=== PATIENT | male | born 1955 | race Caucasian/White ===

== ENCOUNTER 2025-06-06 21:14 | Emergency (ER) | payer MEDICARE, SELFPAY ==
--- OUTSIDE RECORDS SUMMARY | 2024-07-17 11:01 | XMS_ITS | Continuity of Care Document ---
Author Organization [facility] ([facility]) Care Team Providers Care Insurance Underwriter Sales Name Role Phone JUVENAL Primary Care Physician [phone] Encounters Encounter Type Service Location Arrival/Admit Date Discharge/Depart Date Discharge Disposition Informant Office or other outpatient consultation for a new or established patient, 20 mins or more, which requires a medically appropriate history and/or examination and straightforward medical decision making. [facility] 07/17/2024 16:01:34 PDT - - [facility] Problem List Start Date End Date Condition Code Condition Name Condition Text Problem Category Problem Text Status Informant - - K57.92 Diverticulitis of intestine, part unspecified, without perforation or abscess without bleeding Diverticulitis of intestine, part unspecified, without perforation or abscess without bleeding - encounte r-diagno [facility] - - R15.0 Incomplete defecation Incomplete defecation - encounte r-diagno [facility] Allergies, adverse reactions, alerts Code Description Status Start Date Substance Reaction Severity Criticality Informant - SULFA ANTIBIOTICS Active (qualifi er value) 014 08:00:0 0 PDT - - - - [facility] - POLLEN EXTRACT Active (qualifi er value) 019 07:00:0 0 PDT - - - - [facility] - AZELASTINE Active (qualifi er value) 014 08:00:0 0 PDT AZELASTINE Other - - [facility]
--- OUTSIDE RECORDS SUMMARY | 2024-07-17 11:01 | XMS_ITS | Continuity of Care Document ---
Author Organization [facility] ([facility]) Care Team Providers Care Test Rack Operator Name Role Phone JUVENAL Primary Care Physician [phone] Encounters Encounter Type Service Location Arrival/Admit Date Discharge/Depart Date Discharge Disposition Informant Office or other outpatient consultation for a new or established patient, 20 mins or more, which requires a medically appropriate history and/or examination and straightforward medical decision making. [facility] 07/17/2024 16:01:34 PDT - - [facility] Problem List Start Date End Date Condition Code Condition Name Condition Text Problem Category Problem Text Status Informant - - K57.92 Diverticulitis of intestine, part unspecified, without perforation or abscess without bleeding Diverticulitis of intestine, part unspecified, without perforation or abscess without bleeding - encounte r-diagno [facility] - - R15.0 Incomplete defecation Incomplete defecation - encounte r-diagno [facility] Allergies, adverse reactions, alerts Code Description Status Start Date Substance Reaction Severity Criticality Informant - SULFA ANTIBIOTICS Active (qualifi er value) 014 08:00:0 0 PDT - - - - [facility] - POLLEN EXTRACT Active (qualifi er value) 019 07:00:0 0 PDT - - - - [facility] - AZELASTINE Active (qualifi er value) 014 08:00:0 0 PDT AZELASTINE Other - - [facility]
--- OUTSIDE RECORDS SUMMARY | 2025-06-06 21:16 | XMS_ITS | Clinical Summary ---
Author Organization [facility] ([place] [facility] [place] / [place]) and Affiliates Address [address] [place] [address] Care Team Providers Care Zipper Setter Name Role Phone Unavailable Primary Care Provider Unavailabl e Social History Tobacco Use Types Packs/Day Years Used Date Smoking Tobacco: Never Assessed Sex and Gender Information Value Date Recorded Sex Assigned at Not on file Legal Sex Male 1:10 AM PDT Gender Identity Not on file Sexual Orientation Not on file Plan of Treatment Health Maintenance Due Date Last Done Comments Colonoscopy 1954 Colorectal Cancer Screening 1954 Tetanus (1 - Tdap) 1973 CT Colonography 1999 Cologuard (FIT-DNA) 1999 FIT/FOBT 1999 Sigmoidoscopy 1999 Pneumococcal Vaccine (1 of 1 - PCV) 02/26/2004 Shingles Vaccine (1 of 2) 02/26/2004 COVID-19 Vaccine (2023-2 5 season) 2024 Influenza (#1) 2025 HPV Vaccine <= 26 Yrs Aged Out No harish flory eligible based on patient's age to complete this topic Hep A Vaccine Series Aged Out No long er eligible based on patient's age to complete this topic Meningococcal MCV4 Vaccine Aged Out N o longer eligible based on patient's age to complete this topic
--- OUTSIDE RECORDS SUMMARY | 2025-06-06 21:16 | XMS_ITS | Clinical Summary ---
Author Organization [facility] Address [address], [address] Care Team Providers Care Central Processing Tech Name Role Phone Unavailable Primary Care Provider Unavailabl e Social History Tobacco Use Types Packs/Day Years Used Date Smoking Tobacco: Never Assessed Sex and Gender Information Value Date Recorded Sex Assigned at Not on file Gender Identity Not on file Sexual Orientation Not on file Plan of Treatment Not on file
--- OUTSIDE RECORDS SUMMARY | 2025-06-06 21:16 | XMS_ITS | Clinical Summary ---
Author Organization [facility] Address [id number] [place] [address] Care Team Providers Care Yard Brakeman Name Role Phone NonstaffDoni MD Primary Care Provider Unav ailable Allergies Active Allergy Reactions Criticality Noted Date Comments Azelastine Other 03/05/2015 Bloody nose Sulfa (Sulfonamide Antibiotics) Hives 12/2014 Medications hydroCORTisone (ANUCORT HC, ANUSOL HC) 25 mg Rectal SuppositoryInd ications:Throm bosed external hemorrhoid Unwrap and insert 1 Suppository rectally 2 times a day. 30 Suppository 1 5 Active Social History Tobacco Use Types Packs/Day Years Used Date Smoking Tobacco: Never Alcohol Use Standard Drinks/Week Comments Not Asked 0 (1 standard drink = 0.6 oz pur e alcohol) Sex and Gender Information Value Date Recorded Sex Assigned at Not on file Legal Sex Male 8:57 AM PDT Gender Identity Not on file Sexual Orientation Not on file Last Filed Vital Signs Vital Sign Reading Time Taken Comments Blood Pressure 124/87 03/05/2015 8:48 AM PDT Pulse 64 03/05/2015 8:48 AM PDT Temperature 36.6 C (97.9 F) 03/05/2015 8:48 AM PDT Respiratory Rate 18 03/05/2015 8:48 AM PDT Oxygen Saturation - - Inhaled Oxygen Concentration - - Weight 97.1 kg (214 lb) 03/05/2015 8:48 AM PDT Height 180.3 cm (5' 11) 03/05/2015 8:48 AM PDT Body Mass Index 29.85 03/05/2015 8:48 AM PDT Plan of Treatment Health Maintenance Due Date Last Done Comments Colonoscopy 1954 Colorectal Cancer Screening 1954 FIT 1954 Fecal Mt-sDNA/Cologuard 1954 Hepatitis C Screening 02/26/1972 DTaP, Tdap, and Td Vaccines (1 - Tdap) 1973 Pneumococcal Vaccines (50+ years) (1 of 1 - PCV) 02/25 Zoster Vaccines (1 of 2) 02/26/2004 COVID-19 Vaccine (1 - season) 2024 Depression Screening (Billing for this is optional) Social Drivers of Health (SDoH) 10/03/2024 Influenza Vaccine (#1) 2025 RSV Vaccines (1 - 1-dose 75+ series) 2029 Insurance [employer] Care Teams Yard Brakeman Relationship Specialty Start Date End Date Doni Bullock MD PCP - General Internal Medicine 03/05/15
[2025-06-06 21:20] VITALS: BP 175/79; PULSE 85; RESP 18; TEMP 36.8; O2SAT 98; BMI 31.4
--- NOTE | 2025-06-06 22:24 | ED.GENADULT ---
HPI - General Adult General Date Seen: 06/06/25 Chief complaint: Eye Problems Stated complaint: left eye vision problem Time Seen by Provider: 06/06/25 21:21 History of Present Illness HPI narrative: 70-year-old gentleman presenting to the ER tonight with flashers and floaters in his left eye. He does note the vision in his left eye was a little bit more blurry than normal as afternoon. At around 7:20 p.m. he started having black floaters in left eye that initially were fairly small and peripheral but subsequently have become a little bit bigger and more central. Along with that he has been noticing occasional little sparkly white lights around the very lateral peripheral edge of his vision of the left eye. Right eye is normal. Also notes that he has had some halos around objects in his vision overall is little bit blurry or than normal. He is not having any eye pain. No headache. No high trauma. No fever. No drainage. He did not have any injury to the eye. No redness. He does wear glasses. He is visiting from [facility]. Related Data Allergies Allergy/AdvReac Type Severity Reaction Status Date / Time azelastine (From Astelin) AdvReac Intermediate Epitaxsis Verified 06/06/25 21:24 PFSH PFS Social History Smoking Status: Never smoker Second hand tobacco smoke exposure: No How often do you have a drink containing alcohol: never AUDIT-C Alcohol total score: 0 Non-prescribed substance use: denies use Exam Narrative: Exam Narrative: Constitutional: Appears well-developed and well-nourished. Alert. Conversant. Non toxic. HENT: Head: Atraumatic. Nose: Nose normal. Mouth/Throat: Oral mucosa is clear and moist. no trismus. Pharynx normal. Tonsils symmetric. No tonsillar enlargement, erythema, or exudate. Eyes: Conjunctivae normal. EOM normal. Pupils equal, round, and reactive to light. No scleral icterus. Visual acuity (R): 20/25, (L): 20/40 Visual pablo are full to confrontation and counting fingers in all 4 quadrants and centrally in each eye. PERRLA, EOMI. No exophthalmos or enophthalmos. Conjunctiva without injection or chemosis Slit Lamp Exam: Lids: No foreign body noted in detailed exam upper and lower lids/margins Anterior Chamber: No cells or flare, No hyphema. No hypopyon. Cornea: No foreign body. Funduscopic exam is normal. I do not see any sign of retinal detachment or bleeding in the central retina. Neck: Normal range of motion. Neck supple. No tracheal deviation present. Cardiovascular: Normal rate, regular rhythm. No gallop. No friction rub. No murmur heard. Pulmonary/Chest: Effort normal. No stridor. No respiratory distress. No wheezes. No rales. No rhonchi . Musculoskeletal: RUE: Normal range of motion. No tenderness. No deformity LUE: Normal range of motion. No tenderness. No deformity RLE: Normal range of motion. No edema. No tenderness. No deformity LLE: Normal range of motion. No edema. No tenderness. No deformity Neurological: Alert and oriented to person, place, and time. Normal strength. CN II-VII intact. No facial droop. No slurred speech. No focal sensory deficit. GCS eye subscore is 4. GCS verbal subscore is 5. GCS motor subscore is 6. Normal coordination Skin: Skin is warm and dry. No rash noted. No pallor. Normal capillary refill. Psychiatric: Normal mood. Normal affect. Const: Vital Signs, click to edit/add: Vital Signs - 24 hr 06/06/25 21:20 06/06/25 23:04 06/06/25 23:31 Temperature 98.3 F 98.3 F 98.3 F Pulse Rate [Right Pulse Oximeter] 85 81 81 Respiratory Rate 18 18 18 Blood Pressure [Ri ght Upper Arm] 175/79 H 155/79 H 155/79 H Pulse Oximetry 98 98 Oxygen Delivery Me thod Room Air Room Air Course Vital Signs Vital signs: Initial Vital Signs Temperature 98.3 F 06/06/25 21:20 Temperature Source Temporal Artery Scan 06/06/25 21:20 Pulse Rate 85 06/06/25 21:20 Respiratory Rate 18 06/06/25 21:20 Blood Pressure 175/79 H 06/06/25 21:20 Blood Pressure Mean 111 H 06/06/25 21:20 Blood Pressure Position Sitting 06/06/25 21:20 Pulse Oximetry 98 06/06/25 21:20 Oxygen Delivery Method Room Air 06/06/25 21:20 Vital Signs Temperature 98.3 F 06/06/25 21:20 Pulse Rate 85 06/06/25 21:20 Respiratory Rate 18 06/06/25 21:20 Blood Pressure 175/79 H 06/06/25 21:20 Pulse Oximetry 98 06/06/25 21:20 Oxygen Delivery Method Room Air 06/06/25 21:20 Temperature 98.3 F 06/06/25 23:31 Pulse Rate 81 06/06/25 23:31 Respiratory Rate 18 06/06/25 23:31 Blood Pressure 155/79 H 06/06/25 23:31 Pulse Oximetry 98 06/06/25 23:04 Oxygen Delivery Method Room Air 06/06/25 23:04 Medical Decision Making MDM Narrative Medical decision making narrative: Very pleasant 70-year-old gentleman presenting to the ER today with left eye blurry vision, central floaters, and peripheral flashers. This affects only his left eye and not his right eye. 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 Evaluation here in the ER shows no definite cause for his visual disturbance. Clinical exam and all ocular ultrasound do not show any definitive evidence for retinal detachment. Slit-lamp exam does not show any evidence for any anterior pathology such as uveitis. No cell or flare. He does not have any eye trauma to raise concern for corneal abrasion or lens detachment (and I can see lens in appropriate position moving with his eye on the ultrasound). Concern here is for retinal detachment, posterior vitreous detachment, vitreous hemorrhage. He is not having any amaurosis fugax or definite vision loss to raise concern for stroke or TIA. At this point low suspicion for central retinal artery occlusion or retinal vein occlusion. He is not having any eye pain to suggest an acute angle closure glaucoma. Although workup so far here in the ER is reassuring, he definitely has an a visual acuity discrepancy. We made contact with Ophthalmology through [facility]. Ophthalmology is very gracious and will agree to see the patient in clinic tomorrow morning (in about 10 hours). Discussed this with the patient and his . They are in agreement. Precautions for return to the ER reviewed. Discharge Plan Discharge Clinical Impression: Visual floaters Patient Disposition: Home, Self-Care Condition: Stable Instructions: Eye (Visual) Floaters (ED) Additional Instructions: Please go to [facility] tomorrow morning 06/07/2025 at 9:00 a.m.. [address], [place], [address] You can be seen by the talent acquisition consultant in their clinic. [facility] may contact you at 8:00 or 8:30 in the morning if they want to reschedule your appointment to a different time tomorrow morning. If you have worsening problems with her vision or any other concerns, please return to the ER right away or call [facility] at [phone] Follow Up/Referrals: Provider,Not a Local [Primary Care Provider, Family Practice] [facility]: [facility] Inst[facility] Procedures POC Ultrasound Ocular Anatomical areas examined: left orbit Indication: loss of vision (Left eye flashers and floaters with blurry vision) Exam type: limited ocular ultrasound Findings left eye: normal retinal contour Left eye impressions: normal ocular ultrasound
[2025-06-06 23:04] VITALS: BP 155/79; PULSE 81; RESP 18; TEMP 36.8; O2SAT 98
[2025-06-06 23:31] VITALS: BP 155/79; PULSE 81; RESP 18; TEMP 36.8
== END 2025-06-06 23:31 | disposition home or self-care (01) ==
PROVIDERS: Emergency Provider Emergency Medicine
DX: H43.392 Other vitreous opacities, left eye (principal)
CPT/HCPCS: 76512; 99283; 99284